=== PATIENT | female | born 1980 | race Caucasian/White ===

== ENCOUNTER 2016-10-11 14:10 | Inpatient (IN) | payer BC ==
[~2016-10-11] VITALS: Ht 160 cm; Wt 78.5 kg
[~2016-10-11 14:10] MED LIST: CLARITIN10 MG PO; FLONASE 0.05% D16 GM NS; MOTRIN-DPS800 MG PO; NIPPLECREAM TP; PERCOCET 5 DPS1 TAB PO; PRENATAL VITAM1 EAC1 PO
[2016-10-14] MEDS ORDERED: COLACE-DPS100 MG PO (10:29)
--- NOTE | 2016-10-16 13:27 | HP ---
ADMIT: 10/11/2016 RM/LOC: 214 [facility] MR#: [id number] [address] KORIN BROWN [address] [place] [address] History and Physical SEX: F AGE: 36 : 1980 DATE OF SERVICE: CHIEF COMPLAINT: Loss of fluid and contractions. HISTORY OF PRESENT ILLNESS: This is a 36-year-old -0-0-1, who presents to Labor and Delivery at 39 weeks and 06/21 days with complaints of irregular contractions and possible rupture of membranes. Her is otherwise only complicated by advanced maternal age and a history of prior section. She does have a history of preeclampsia in a previous , but no elevated blood pressures in this . Her is also complicated by Rh-negative status, and she did receive RhoGAM at approximately 28 weeks' gestation. OBSTETRIC LABORATORY DATA: The patient is A negative. Antibody screen negative. Her 1-hour Glucola was 111. RPR was nonreactive. Hepatitis B surface antigen was negative. She is rubella immune. Gonorrhea and chlamydia were negative. HIV was negative. PAST MEDICAL HISTORY: As stated above. PAST SURGICAL HISTORY: One prior section in December of 2014. She has had arthroscopy of her knee revised in 05/2010 and in 07/2009. Finger surgery of pinky finger, left. Pap smear was done on 07/14/2014 with HPV negative. One prior section on 01/02/2015 for breech position. SOCIAL HISTORY: She is . No tobacco. No alcohol. No drug use. ALLERGIES: NO KNOWN DRUG ALLERGIES. MEDICATIONS: She is on: 1. Fluticasone daily. 2. Low-dose aspirin 81 mg. 3. Claritin. 4. vitamins. REVIEW OF SYSTEMS: The patient indicates possible loss of fluid. No vaginal bleeding. Irregular contractions. Good movement. No fevers, chills, chest pain, shortness of breath, nausea, vomiting, or bowel or bladder symptoms. PHYSICAL EXAMINATION: VITAL SIGNS: Blood pressure is 130/82, pulse is 72. She is afebrile. She is 99% on room air. heart tones baseline is 130, moderate variability, positive accelerations, no decelerations noted. She does have irregular contractions with some irritability. Cervical examination shows cervix to be 1.5 cm, 50% effaced, zero station. This is unchanged from subsequent examinations, however, AmniSure was ADMIT: 10/11/2016 RM/LOC: 214 [facility] MR#: [id number] [address] [address] KORIN BROWN 424 COUNTS INCLUDE 234 BEDS AT THE [facility] [address] [place] [address] History and Physical SEX: F AGE: 36 : 1980 positive. ASSESSMENT AND PLAN: This is a 36-year-old -0-0-1, with an intrauterine at 39 weeks and 1/7th days by 7-week ultrasound. 1. Spontaneous rupture of membranes at term. Indication is to proceed with repeat low transverse section. Risks, benefits, and alternatives were discussed with the patient. She understands risks to include, but are not limited to, bleeding, infection, injury to surrounding structures, potential need for transfusion, venous thromboembolism, potential need for additional procedures, and anesthesia complications. She also understands the risks of blood transfusion include but not limited to, risk of infection like hepatitis C, human immunodeficiency virus, hepatitis B, or other infections that we are not currently testing for. She also understands risks to include possible transfusion related reaction that could potentially be life-threatening or development of antibodies that could complicate future pregnancies, or her ability to get blood in the future and on emergency. The patient voiced understanding and did sign surgical consents. 2. The patient is A negative. We will send infant cord blood and if is Rhesus positive, the patient will receive RhoGAM . 3. The patient is rubella immune. She does not need MMR . Elizabeth Guzman MD/ herman JOB #: [id number] CC: Ariella Molina, Attending Physician Ariella Molina, Family Physician
--- NOTE | 2016-10-16 13:27 | OR ---
ADMIT: 10/11/2016 RM/LOC: 227 [facility] MR#: [id number] [address] [address] KORIN BROWN [address] [place] [address] Operative/Delivery Room Report SEX: F AGE: 36 : 1980 Corrected: 10/13/2016 0647 njv SURGERY DATE: 10/11/2016 SURGEON: Elizabeth Guzman MD PREOPERATIVE DIAGNOSES: 1. Term intrauterine at 39 weeks /7th day. 2. Spontaneous rupture of membranes. 3. Rh negative. 4. History of preeclampsia. 5. Advanced maternal age. 6. History of prior section. POSTOPERATIVE DIAGNOSES: 1. Term intrauterine at 39 weeks 06/21 day. 2. Spontaneous rupture of membranes. 3. Rh negative. 4. History of preeclampsia. 5. Advanced maternal age. 6. History of prior section. PROCEDURE: Repeat low-transverse section. ACCOUNTING PROFESSIONAL: Haleigh Smith MD Resident. FINDINGS: Viable male infant with 6 and 9 and a weight of 6 pounds 10.5 ounces, intact placenta with 3-vessel cord. Normal tubes and ovaries bilaterally as well as normal uterus. ANESTHESIA: Spinal with Duramorph. VTE PROPHYLAXIS: Sequential compression devices. ESTIMATED BLOOD LOSS: 450 mL. IV FLUIDS: 1300 mL of crystalloid. URINE OUTPUT: 25 mL during the procedure. ANTIBIOTICS: 2 g of Ancef prior to skin incision. INDICATIONS FOR PROCEDURE: This is a 36-year-old G2, P1-0-0-1, who presented to Labor and Delivery at 39 weeks and 06/21 day by 7-week ultrasound with complaints of contractions and loss of fluid. She was found to be spontaneously ruptured. Given history of prior section in term, she desired to proceed with repeat low transverse section. PROCEDURE IN DETAIL: The patient was taken to the operating room, where ADMIT: 10/11/2016 RM/LOC: 227 [facility] MR#: [id number] [facility] [address] [address] [address]ORIN BROWN [address] [place], [place] [id number] Operative/Delivery Room Report SEX: F AGE: 36 : 1980 spinal anesthesia was placed. She was then placed in dorsal supine position with a leftward tilt. She was prepped and draped in the usual sterile fashion. A time-out was performed. Anesthesia was found to be adequate. An elliptical incision on old scar was made and the old scar was removed from the underlying tissue. The Pfannenstiel incision was then carried down to the underlying fascia and the fascia was then incised in the midline. Rey scissors were then used to extend the fascial incision, just to the angle bilaterally. Fidel's x2 were placed on the superior aspect of the fascia and rectus muscles were dissected off bluntly. The Fidel's were removed and placed on the inferior aspect of the fascia and rectus muscles were then dissected off bluntly in the midline. Adhesions were taken down sharply with Ery scissors both inferiorly and superiorly. Rectus muscles were then divided in the midline and peritoneum was entered bluntly. Traction was used to extend the peritoneal incision. Bladder blade was placed with good visualization of the lower uterine segment. Metzenbaum scissors and Russians were then used to tent up the vesicouterine peritoneum and incised with the bladder flap, which was further developed digitally and bladder blade was then replaced. Clean scalpel was used to make hysterotomy incision, which was extended bluntly. head was grasped and flexed and brought to the level of the incision. Nuchal cord x1 was noted. Delayed cord clamping x1 minute was employed. The cord was then clamped and cut and infant handed to the awaiting nursing team. Cord blood was collected. Placenta was then delivered spontaneously intact with gentle traction. Uterus was then cleared of all remaining clots and debris. 0 Vicryl was used to close the uterine incision in a running locked fashion. Good hemostasis was noted. Posterior cul-de-sac was then irrigated, then uterus was returned to the abdomen. Hemostasis was noted to be continued at the hysterotomy incision. The gutters were then cleared of clots and debris using a clean wet lap. Bladder was inspected and noted to be hemostatic as well as hysterotomy incision was continued to be hemostatic. Rectus muscles were then inspected and any areas of bleeding were cauterized with Bovie. The fascia was then closed using one PDS in a running fashion with buried knot at the left angle. Subcutaneous ADMIT: 10/11/2016 RM/LOC: 227 [facility] MR#: [id number] [address] [address] KORIN BROWN [address] [place] [address] Operative/Delivery Room Report SEX: F AGE: 36 : 1980 tissue was then irrigated. Areas of bleeding were cauterized with the Bovie. The subcu was reapproximated with 2-0 plain gut in an interrupted fashion. Subcuticular stitches of 4-0 Vicryl were used to close the skin and Dermabond was placed over the top with a Telfa given the patient's history of reaction to the dressing tape. Sponge and instrument counts were correct x2. COMPLICATIONS: None. DISPOSITION: The patient is stable in recovery room and infant to nursery. Elizabeth Guzman MD/ herman JOB #: [id number] CC: Ariella Molina, Attending Physician Ariella Molina, Family Physician Corrected: 10/13/2016 0647 njv
--- NOTE | 2016-11-30 17:41 | DS ---
ADMIT: 10/11/2016 RM/LOC: 227 [facility] MR#: [id number] [address] KORIN BROWN [address] [place] [address] General Discharge Summary SEX: F AGE: 36 : 1980 ADMISSION DATE: 10/11/2016 DISCHARGE DATE: 10/13/2016 ADMISSION DIAGNOSES: 1. A 36-year-old, 2, para 1-0-0-1, with intrauterine at 39 and 1/7 weeks. 2. Advanced maternal age. 3. History of preeclampsia in previous . 4. Rh negative status. DISCHARGE DIAGNOSES: 1. Status post repeat low transverse section. 2. Advanced maternal age. 3. History of preeclampsia in previous . 4. Rh negative status. SERVICE: Obstetrics. PHYSICIANS: Elizabeth Guzman MD and Ariella Molina MD CONSULTS: None. PROCEDURES: Repeat low transverse on 10/11/2016. HISTORY AND PHYSICAL EXAM: Briefly, the patient is a 36-year-old, 2, para 1-0-0-1, who presented to Labor and delivery at 39 and 1/7 weeks gestation with complaints of contractions and rupture of membranes. The patient had been scheduled later in the week for a repeat ; however, due to labor, was admitted on the date of service. Please see dictated history and physical exam for more information. HOSPITAL COURSE: On hospital day #1, the patient was admitted and underwent repeat low transverse without complication. On postoperative day #1, the patient complained of significant nausea and vomiting overnight, which did respond to antiemetics. The patient's pain was well controlled, and her hemoglobin had decreased appropriately. The patient also received RhoGAM due to infant's Rh positive status. On postoperative day #2, the patient continued to improve. Her nausea and vomiting had resolved. She was tolerating a regular diet, breast feeding, ambulating, voiding, and passing gas. The patient was felt to be stable for discharge to home. DISPOSITION: Discharged to home. DISCHARGE CONDITION: Good. DISCHARGE MEDICATIONS: 1. Claritin 10 mg 1 tablet p.o. daily. 2. Colace 100 mg p.o. b.i.d. 3. vitamins 1 tablet p.o. daily. ADMIT: 10/11/2016 RM/LOC: 227 [facility] MR#: [id number] [address] [address] [address]IN [address]OWN [address] [place] [address] General Discharge Summary SEX: F AGE: 36 : 1980 4. Flonase 2 sprays each nostril daily. 5. Motrin 800 mg p.o. q.8 hours p.r.n. pain. 6. Percocet 5/325, 1 to 2 p.o. q.4 hours p.r.n. pain. 7. Bob's nipple cream 1 application to nipples as needed. DISCHARGE INSTRUCTIONS: The patient is to follow up in 2 weeks for an incision check at the nurses station at the [facility]. She is to maintain pelvic rest for 6 [address] while taking narcotics, and no lifting greater than 15 pounds. The patient has a 6-week checkup scheduled with Dr. Molina. She was instructed to call the clinic or return to the nearest emergency room should she experience pain not controlled by pain medications, heavy vaginal bleeding, intractable nausea or vomiting, temperature greater than 100.4 degrees Fahrenheit, or any incisional concerns. Ariella Molina MD/ herman JOB #: [id number] CC: Elizabeth Guzman MD, Attending Physician Ariella Molina MD, Family Physician
== END 2016-10-13 11:00 | disposition home or self-care (01) | DRG 766 ==
LOC: 2LDRP 14:10 → BC 14:10 → 2LDRP 17:16 → BC 10-17 08:00
PROVIDERS: ADMIT Obstetrics & Gynecology
PROC: 3E0234Z Introduction of Serum, Toxoid and Vaccine into Muscle, Percutaneous Approach (ICD-10-PCS; 2016-10-12)
PROC: 10D00Z1 Extraction of Products of Conception, Low, Open Approach (ICD-10-PCS; principal; 2016-10-13)
DX: O34.211 Maternal care for low transverse scar from previous cesarean delivery (principal); O75.89 Other specified complications of labor and delivery; Z3A.39 39 weeks gestation of pregnancy; Z37.0 Single live birth; Z79.82 Long term (current) use of aspirin